=== PATIENT | female | born 1965 | race Caucasian/White ===

== ENCOUNTER 2016-12-30 13:38 | Inpatient (IN) | payer OTHER ==
[~2016-12-30] VITALS: Ht 158.8 cm; Wt 50.1 kg
[~2016-12-30 13:38] MED LIST: ESCITALOPRAM OX20 MG PO
[2016-12-30 14:36] LABS: HEMATOCRIT 47.2 % (36.0-46.0); MCH 33.4 PG (29.0-34.0); MCV 95.5 FL (83-99); MEAN PLAT.VOLUME 8.8 uM^3 (9.5-12.4); PLATELET COUNT 333 K/uL (156-360); RBC DIS.WIDTH-CV 12.3 % (11.8-14.6); RBC DIS.WIDTH-SD 43.5 % (39-53); RED BLOOD COUNT 4.94 M/uL (3.80-5.20)
[2016-12-30 14:47] LABS: CHLORIDE 104 mEq/L (99-109); POTASSIUM 3.4 mEq/L (3.7-5.4); SODIUM 142 mEq/L (136-147)
[2016-12-30 14:49] LABS: GLUCOSE 106 mg/dL (70-99)
[2016-12-30 14:50] LABS: ANION GAP 17 MEQ/L (2-14)
[2016-12-30 14:51] LABS: TOTAL BILIRUBIN 0.3 mg/dL (0.0-1.0)
[2016-12-30 14:52] LABS: SERUM ETHYL ALCOHOL 84 mg/dL
[2016-12-30 14:53] LABS: ALKALINE PHOSPHATASE 82 IU/L (3-129); GFR ESTIMATE (CALCULATED) > 59 mL/min/
[2016-12-30 14:54] LABS: UREA NITROGEN (BUN) 11 mg/dL (9-23)
[2016-12-30 16:04] LABS: ADD MEDTOX COMMENT Y; AMPHETAMINE NEGATIVE (500 ng/mL); BARBITURATES NEGATIVE (200 ng/mL); BENZODIAZEPINES NEGATIVE (150 ng/mL); COCAINE PRESUMPTIVE POSITIVE (150 ng/mL); INTERNAL CONTROLS VALID? YES; METHADONE NEGATIVE (200 ng/mL); METHAMPHETAMINE NEGATIVE (500 ng/mL); OPIATES (MORPHINE) NEGATIVE (100 ng/mL); OXYCODONE NEGATIVE (100 ng/mL); PHENCYCLIDINE NEGATIVE (25 ng/mL); PROPOXYPHENE NEGATIVE (300 ng/mL); THC CANNABINOIDS PRESUMPTIVE POSITIVE (50 ng/mL); TRICYCLIC ANTIDEPRESSANTS NEGATIVE (300 ng/mL)
[2016-12-30 16:35] LABS: MAGNESIUM 1.6 mg/dL (1.3-2.7)
[2016-12-30 17:03] LABS: TROP-I INTERPRETATION NEGATIVE; TROPONIN-I < 0.01 ng/mL (0.0-0.30)
[2016-12-30 17:45] VITALS: BP 142/85
[2016-12-30 18:00] VITALS: BP 142/85
[2016-12-30 20:15] LABS: ADD MIUA? NO; BILIRUBIN NEGATIVE; BLOOD NEGATIVE; COLOR YELLOW ((YELLOW)); GLUCOSE (STRIP) NEGATIVE; KETONES 5; LEUKOCYTES NEGATIVE; NITRITE NEGATIVE; PROTEIN (STRIP) 30; SPECIFIC GRAVITY 1.025 (1.000-1.030); UROBILINOGEN 0.2 MG/DL (0.2-1.0)
[2016-12-30 20:40] VITALS: BP 139/85
[2016-12-31 00:20] VITALS: BP 165/93
[2016-12-31 04:12] VITALS: BP 137/79
[2016-12-31 05:46] LABS: ANION GAP 5 MEQ/L (2-14); CHLORIDE 108 MEQ/L (99-109); GFR ESTIMATE (CALCULATED) > 59 mL/min/; GLUCOSE 82 mg/dL (70-99); SAMPLE HEMOLYSIS CHECK 0; SAMPLE ICTERIC CHECK 0; SAMPLE LIPEMIA CHECK 0; SODIUM 139 MEQ/L (136-147); UREA NITROGEN (BUN) 6 mg/dL (9-23)
[2016-12-31 06:17] LABS: POTASSIUM 4.1 MEQ/L (3.7-5.4)
[2016-12-31 07:49] VITALS: BP 152/88
[2016-12-31 11:40] VITALS: BP 148/85
[2016-12-31 16:03] VITALS: BP 162/83
[2016-12-31 23:50] VITALS: BP 136/84
[2017-01-01 05:48] LABS: ANION GAP 4 MEQ/L (2-14); CHLORIDE 108 MEQ/L (99-109); GFR ESTIMATE (CALCULATED) > 59 mL/min/; GLUCOSE 98 mg/dL (70-99); POTASSIUM 3.7 MEQ/L (3.7-5.4); SAMPLE HEMOLYSIS CHECK 0; SAMPLE ICTERIC CHECK 0; SAMPLE LIPEMIA CHECK 0; SODIUM 140 MEQ/L (136-147); UREA NITROGEN (BUN) 4 mg/dL (9-23)
[2017-01-01 06:12] LABS: EOSINOPHIL (%) 4.3 % (0-5); EOSINOPHIL COUNT 0.3 K/uL (0-0.3); HEMATOCRIT 37.6 % (36.0-46.0); IMMATURE GRANULOCYTE (%) 0.3 % (0.0-0.7); INSTRUMENT ABS NEUTROPHIL CT 3.4 K/uL; LYMPHOCYTE COUNT 1.7 K/uL (1.0-2.8); MCH 32.9 PG (29.0-34.0); MCHC 33.2 G/DL (30.0-36.0); MCV 98.9 FL (83-99); MONOCYTE (%) 13.6 % (3-12); MONOCYTE COUNT 0.9 K/uL (0-0.8); NEUTROPHIL (%) 54.7 % (45-76); NEUTROPHIL COUNT 3.4 K/uL (1.8-6.4); RBC DIS.WIDTH-CV 12.1 % (11.8-14.6); RBC DIS.WIDTH-SD 44.2 % (39-53); WHITE BLOOD COUNT 6.3 K/uL (4.1-10.2)
[2017-01-01 06:55] LABS: MEAN PLAT.VOLUME 9.1 uM^3 (9.5-12.4); PLAT.SUFFICIENCY ADEQUATE
[2017-01-01 07:33] LABS: PLATELET COUNT 211 K/uL (156-360)
[2017-01-01 07:54] VITALS: BP 133/78
== END 2017-01-01 11:35 | disposition left against medical advice (07) | DRG 894 ==
LOC: EME 13:38 → EDOF 16:20 → 3EAST 16:20
PROVIDERS: Emergency Medicine; Internal Medicine
PROC: HZ2ZZZZ Detoxification Services for Substance Abuse Treatment (ICD-10-PCS; principal; 2016-12-30)
DX: F10.220 Alcohol dependence with intoxication, uncomplicated (principal); F33.9 Major depressive disorder, recurrent, unspecified; R44.3 Hallucinations, unspecified; F10.230 Alcohol dependence with withdrawal, uncomplicated; Y90.4 Blood alcohol level of 80-99 mg/100 ml; F12.10 Cannabis abuse, uncomplicated; E87.6 Hypokalemia; F17.210 Nicotine dependence, cigarettes, uncomplicated; F14.10 Cocaine abuse, uncomplicated; E78.5 Hyperlipidemia, unspecified; I10 Essential (primary) hypertension; F41.9 Anxiety disorder, unspecified; Z91.19 Patient's noncompliance with other medical treatment and regimen; Z86.73 Personal history of transient ischemic attack (TIA), and cerebral infarction without residual deficits; Z83.3 Family history of diabetes mellitus; Z82.49 Family history of ischemic heart disease and other diseases of the circulatory system; Z09 Encounter for follow-up examination after completed treatment for conditions other than malignant neoplasm
CPT/HCPCS: 80048; 80053; 81003; 83735; 84484; 84999; 85025; 85027; 93005; 99202; 99281; 99285; C9113; G0480; J1650; J2060; J2270; J2405; J3411; J3475; J7030; J7042

== ENCOUNTER 2017-02-05 12:46 | Emergency (ER) | payer OTHER ==
[~2017-02-05] VITALS: Ht 157.5 cm; Wt 47.8 kg
[2017-02-05 14:57] LABS: BASOPHIL COUNT 0.1 K/uL (0-0.1); EOSINOPHIL (%) 0.1 % (0-5); HEMATOCRIT 48.6 % (36.0-46.0); IMMATURE GRANULOCYTE (%) 0.5 % (0.0-0.7); IMMATURE GRANULOCYTE COUNT 0.1 K/uL; INSTRUMENT ABS NEUTROPHIL CT 8.9 K/uL; LYMPHOCYTE COUNT 1.2 K/uL (1.0-2.8); MCH 33.7 PG (29.0-34.0); MCV 99.2 FL (83-99); MONOCYTE (%) 5.9 % (3-12); MONOCYTE COUNT 0.7 K/uL (0-0.8); NEUTROPHIL (%) 81.8 % (45-76); NEUTROPHIL COUNT 8.9 K/uL (1.8-6.4); PLATELET COUNT 219 K/uL (156-360); RBC DIS.WIDTH-CV 13.9 % (11.8-14.6); RBC DIS.WIDTH-SD 51.2 % (39-53)
[2017-02-05 14:59] LABS: ADD MIUA? YES; BILIRUBIN NEGATIVE; BLOOD SMALL; COLOR YELLOW ((YELLOW)); GLUCOSE (STRIP) NEGATIVE; KETONES NEGATIVE; LEUKOCYTES LARGE; NITRITE POSITIVE; PROTEIN (STRIP) NEGATIVE; SPECIFIC GRAVITY 1.006 (1.000-1.030); UROBILINOGEN 0.2 MG/DL (0.2-1.0)
[2017-02-05 15:04] LABS: CHLORIDE 100 mEq/L (99-109); POTASSIUM 3.6 mEq/L (3.7-5.4)
[2017-02-05 15:05] LABS: SODIUM 142 mEq/L (136-147)
[2017-02-05 15:06] LABS: GLUCOSE 79 mg/dL (70-99)
[2017-02-05 15:08] LABS: ANION GAP 15 MEQ/L (2-14)
[2017-02-05 15:09] LABS: SERUM ETHYL ALCOHOL 276 mg/dL
[2017-02-05 15:10] LABS: GFR ESTIMATE (CALCULATED) > 59 mL/min/
[2017-02-05 15:11] LABS: ADD MEDTOX COMMENT Y; AMPHETAMINE NEGATIVE (500 ng/mL); BARBITURATES NEGATIVE (200 ng/mL); BENZODIAZEPINES PRESUMPTIVE POSITIVE (150 ng/mL); COCAINE PRESUMPTIVE POSITIVE (150 ng/mL); INTERNAL CONTROLS VALID? YES; METHADONE NEGATIVE (200 ng/mL); METHAMPHETAMINE NEGATIVE (500 ng/mL); OPIATES (MORPHINE) NEGATIVE (100 ng/mL); OXYCODONE NEGATIVE (100 ng/mL); PHENCYCLIDINE NEGATIVE (25 ng/mL); PROPOXYPHENE NEGATIVE (300 ng/mL); THC CANNABINOIDS PRESUMPTIVE POSITIVE (50 ng/mL); TRICYCLIC ANTIDEPRESSANTS NEGATIVE (300 ng/mL)
[2017-02-05 15:11] LABS: UREA NITROGEN (BUN) 6 mg/dL (9-23)
[2017-02-05 15:21] LABS: BACTERIA 2+ /HPF; CASTS PRESENT /LPF; CRYSTALS NONE SEEN; EPITHELIAL CELLS RARE /HPF; HYALINE CASTS 0-5 /LPF; MUCUS NONE SEEN /LPF; RED BLOOD CELLS 0-5 /HPF (0-5); WHITE BLOOD CELLS TNTC /HPF (0-5)
[2017-02-05 15:39] LABS: BENZODIAZEPINES QUANT VALUE 0 NG/ML; BENZODIAZEPINES, URINE SCREEN Negative (200 ng/mL)
[2017-02-05] MEDS ORDERED: CIPRO500 MG PO (22:24)
[2017-02-05] MEDS ORDERED: LIBRIUM25 MG PO (22:31)
[2017-02-05 23:10] VITALS: BP 112/80
== END 2017-02-05 23:14 | disposition home or self-care (01) ==
LOC: EME 12:46
PROVIDERS: Emergency Medicine
DX: F10.10 Alcohol abuse, uncomplicated (principal); Y90.8 Blood alcohol level of 240 mg/100 ml or more; F14.10 Cocaine abuse, uncomplicated; F12.10 Cannabis abuse, uncomplicated; N39.0 Urinary tract infection, site not specified; F32.9 Major depressive disorder, single episode, unspecified; F17.200 Nicotine dependence, unspecified, uncomplicated; I10 Essential (primary) hypertension
CPT/HCPCS: 80048; 81003; 84999; 85025; 99281; 99285; G0480; J2060

== ENCOUNTER 2017-05-07 13:55 | Emergency (ER) | payer OTHER ==
[~2017-05-07] VITALS: Ht 160 cm; Wt 52.0 kg
[~2017-05-07 13:55] MED LIST changes: +CIPRO500 MG PO; +LIBRIUM25 MG PO
[2017-05-07 14:52] LABS: BASOPHIL COUNT 0.1 K/uL (0-0.1); EOSINOPHIL (%) 0.9 % (0-5); EOSINOPHIL COUNT 0.1 K/uL (0-0.3); HEMATOCRIT 40.1 % (36.0-46.0); IMMATURE GRANULOCYTE (%) 0.5 % (0.0-0.7); INSTRUMENT ABS NEUTROPHIL CT 5.2 K/uL; LYMPHOCYTE COUNT 1.9 K/uL (1.0-2.8); MCH 33.7 PG (29.0-34.0); MCHC 34.2 G/DL (30.0-36.0); MCV 98.8 FL (83-99); MEAN PLAT.VOLUME 8.5 uM^3 (9.5-12.4); MONOCYTE (%) 9.8 % (3-12); MONOCYTE COUNT 0.8 K/uL (0-0.8); NEUTROPHIL (%) 64.6 % (45-76); NEUTROPHIL COUNT 5.2 K/uL (1.8-6.4); PLATELET COUNT 313 K/uL (156-360); RBC DIS.WIDTH-SD 50.4 % (39-53); RED BLOOD COUNT 4.06 M/uL (3.80-5.20); WHITE BLOOD COUNT 8.1 K/uL (4.1-10.2)
[2017-05-07 15:00] LABS: INTER. NORMALIZED RATIO 1.1; PROTHROMBIN TIME 11.8 SEC (10.2-12.9)
[2017-05-07 15:03] LABS: CHLORIDE 106 mEq/L (99-109)
[2017-05-07 15:04] LABS: POTASSIUM 3.7 mEq/L (3.7-5.4); SODIUM 140 mEq/L (136-147)
[2017-05-07 15:06] LABS: GLUCOSE 77 mg/dL (70-99)
[2017-05-07 15:07] LABS: ANION GAP 15 MEQ/L (2-14)
[2017-05-07 15:08] LABS: TOTAL BILIRUBIN 0.2 mg/dL (0.0-1.0)
[2017-05-07 15:08] LABS: ADD MIUA? NO; BILIRUBIN NEGATIVE; BLOOD NEGATIVE; COLOR STRAW ((YELLOW)); GLUCOSE (STRIP) NEGATIVE; KETONES NEGATIVE; LEUKOCYTES NEGATIVE; NITRITE NEGATIVE; PROTEIN (STRIP) NEGATIVE; SPECIFIC GRAVITY 1.008 (1.000-1.030); UCUL ADDED? NO; UROBILINOGEN 0.2 MG/DL (0.2-1.0)
[2017-05-07 15:09] LABS: ALKALINE PHOSPHATASE 76 IU/L (3-129)
[2017-05-07 15:10] LABS: GFR ESTIMATE (CALCULATED) > 59 mL/min/
[2017-05-07 15:11] LABS: UREA NITROGEN (BUN) 7 mg/dL (9-23)
[2017-05-07 15:13] LABS: LIPASE 29 U/L (1.0-51.0)
[2017-05-07] MEDS ORDERED: BENTYL20 MG PO (18:16)
[2017-05-07 18:39] VITALS: BP 154/97
== END 2017-05-07 18:42 | disposition home or self-care (01) ==
LOC: EME 13:55
PROVIDERS: Emergency Medicine
DX: R10.9 Unspecified abdominal pain (principal); K21.9 Gastro-esophageal reflux disease without esophagitis; I10 Essential (primary) hypertension; E78.5 Hyperlipidemia, unspecified; F17.200 Nicotine dependence, unspecified, uncomplicated
CPT/HCPCS: 76705; 80053; 81003; 83690; 85025; 85610; 99281; 99285; J2405; J7030

== ENCOUNTER 2018-03-04 17:09 | Inpatient (IN) | payer OTHER ==
[~2018-03-04] VITALS: Ht 157.5 cm; Wt 55.0 kg
[~2018-03-04 17:09] MED LIST changes: +BENTYL20 MG PO
[2018-03-04 18:55] LABS: BASOPHIL (%) 0.5 % (0-1); BASOPHIL COUNT 0.1 K/uL (0-0.1); EOSINOPHIL (%) 0.4 % (0-5); HEMATOCRIT 41.1 % (36.0-46.0); HEMOGLOBIN 14.8 G/DL (11.9-15.5); IMMATURE GRANULOCYTE (%) 0.6 % (0.0-0.7); LYMPHOCYTE (%) 14.9 % (15-42); LYMPHOCYTE COUNT 1.5 K/uL (1.0-2.8); MCH 36.3 PG (29.0-34.0); MCV 100.7 FL (83-99); MONOCYTE (%) 13.3 % (3-12); MONOCYTE COUNT 1.3 K/uL (0-0.8); NEUTROPHIL (%) 70.3 % (45-76); NEUTROPHIL COUNT 6.8 K/uL (1.8-6.4); PLATELET COUNT 287 K/uL (156-360); RBC DIS.WIDTH-CV 13.2 % (11.8-14.6); RBC DIS.WIDTH-SD 49.3 % (39-53); RED BLOOD COUNT 4.08 M/uL (3.80-5.20); WHITE BLOOD COUNT 9.7 K/uL (4.1-10.2)
[2018-03-04 19:06] LABS: CHLORIDE 96 mEq/L (99-109); POTASSIUM 3.1 mEq/L (3.7-5.4); SODIUM 135 mEq/L (136-147)
[2018-03-04 19:08] LABS: GLUCOSE 77 mg/dL (70-99)
[2018-03-04 19:11] LABS: SERUM ETHYL ALCOHOL < 10 mg/dL
[2018-03-04 19:12] LABS: CREATININE 0.7 mg/dL (0.6-1.3); GFR ESTIMATE (CALCULATED) > 59 mL/min/
[2018-03-04 19:13] LABS: UREA NITROGEN (BUN) 5 mg/dL (9-23)
[2018-03-04 19:15] LABS: ACETAMINOPHEN (TYLENOL) < 10 mcg/mL (10-30)
[2018-03-04 19:20] LABS: QUANTITATIVE HCG 9.9 MIU/ML
[2018-03-04 19:36] LABS: APPEARANCE SL.HAZY ((CLEAR)); BILIRUBIN SMALL; BLOOD NEGATIVE; COLOR AMBER ((YELLOW)); GLUCOSE (STRIP) NEGATIVE; KETONES NEGATIVE; LEUKOCYTES NEGATIVE; NITRITE NEGATIVE; PROTEIN (STRIP) 30; SPECIFIC GRAVITY 1.024 (1.000-1.030)
[2018-03-04 20:12] LABS: SALICYLATE < 1.0 MG/DL (15-30)
[2018-03-04 20:15] LABS: BACTERIA 1+ /HPF; CALCIUM OXALATE CRYSTALS 1+ /HPF; EPITHELIAL CELLS 2+ /HPF; MUCUS 4+ /LPF; RED BLOOD CELLS 0-5 /HPF (0-5); UCUL ADDED? NO; WHITE BLOOD CELLS 0-5 /HPF (0-5)
[2018-03-04 20:25] LABS: AMPHETAMINE NEGATIVE (500 ng/mL); BARBITURATES NEGATIVE (200 ng/mL); BENZODIAZEPINES NEGATIVE (150 ng/mL); BUPRENORPHINE NEGATIVE (10 ng/mL); COCAINE PRESUMPTIVE POSITIVE (150 ng/mL); METHADONE NEGATIVE (200 ng/mL); METHAMPHETAMINE PRESUMPTIVE POSITIVE (500 ng/mL); OPIATES (MORPHINE) PRESUMPTIVE POSITIVE (100 ng/mL); OXYCODONE NEGATIVE (100 ng/mL); PHENCYCLIDINE NEGATIVE (25 ng/mL); PROPOXYPHENE NEGATIVE (300 ng/mL); THC CANNABINOIDS PRESUMPTIVE POSITIVE (50 ng/mL); TRICYCLIC ANTIDEPRESSANTS NEGATIVE (300 ng/mL)
[2018-03-04] MEDS ORDERED: PROPRANOLOL HCL60 MG PO (22:18)
[2018-03-04] MEDS ORDERED: SERTRALINE HCL100 MG PO (22:18)
[2018-03-04] MEDS ORDERED: CENTRUM SILVER1 EAC4 PO (22:19)
[2018-03-04] MEDS ORDERED: PRILOSEC20 MG PO (22:19)
[2018-03-04] MEDS ORDERED: ALEVE220 MG PO (22:20)
[2018-03-04] MEDS ORDERED: ANTI-ITCH28 G1 TP (22:20)
[2018-03-04 22:35] VITALS: BP 147/99
[2018-03-05 08:17] VITALS: BP 121/77
[2018-03-05 16:54] VITALS: BP 120/60
[2018-03-06 07:39] VITALS: BP 108/66
[2018-03-06 16:22] VITALS: BP 111/67
[2018-03-07 07:43] VITALS: BP 109/67
[2018-03-07 15:21] VITALS: BP 118/62
[2018-03-08 07:47] VITALS: BP 126/74
[2018-03-08 15:13] VITALS: BP 99/59
[2018-03-09 07:46] VITALS: BP 131/70
[2018-03-09 16:43] VITALS: BP 126/55
[2018-03-10 07:41] VITALS: BP 128/70
[2018-03-10] MEDS ORDERED: INDERAL40 MG PO (09:37)
[2018-03-10] MEDS ORDERED: SERTRALINE HCL100 MG PO (09:37)
== END 2018-03-10 11:09 | disposition home or self-care (01) | DRG 885 ==
LOC: EME 17:09 → ENRESERV 21:57 → EDOF 22:13 → 1WEST 22:13 → EDLOC 22:13 → 1WEST 22:13 → EDOF 22:28 → 1WEST 22:55
PROVIDERS: Emergency Medicine
DX: F33.1 Major depressive disorder, recurrent, moderate (principal); R45.851 Suicidal ideations; F11.10 Opioid abuse, uncomplicated; F10.10 Alcohol abuse, uncomplicated; F14.10 Cocaine abuse, uncomplicated; F12.10 Cannabis abuse, uncomplicated; S92.321A Displaced fracture of second metatarsal bone, right foot, initial encounter for closed fracture; S92.331A Displaced fracture of third metatarsal bone, right foot, initial encounter for closed fracture; W20.8XXA Other cause of strike by thrown, projected or falling object, initial encounter; I10 Essential (primary) hypertension; K21.9 Gastro-esophageal reflux disease without esophagitis; E78.5 Hyperlipidemia, unspecified; F17.200 Nicotine dependence, unspecified, uncomplicated
CPT/HCPCS: 73630; 80048; 81003; 84702; 84999; 85025; 90839; 97150 GO; 97165 GO; 99281; 99285; G0480; Q0177